=== PATIENT | male | born 1975 | race American Indian/Alaskan Native ===

== ENCOUNTER 2016-10-01 09:29 | Emergency (ER) | payer SELFPAY ==
[~2016-10-01] VITALS: Ht 177.8 cm; Wt 82.1 kg
[2016-10-01 09:31] VITALS: BP 129/86
[2016-10-01] MEDS ORDERED: DIPH,PERTUSS(ACELL),TET VAC/PF 0.5 ML IM-VACC ONE ×2 (09:47→10:00)
[2016-10-01] MEDS ORDERED: LIDOCAINE 1%-EPI 1:100K, 50ML ONE (09:47)
[2016-10-01] MEDS ORDERED: LIDOCAINE 1%-EPI 1:100K, 20ML SQ ONE (10:00)
[2016-10-01] MEDS ORDERED: BACITRACIN ZINC OINT 500U/GM, 0.9 GM ONE (11:00)
== END 2016-10-01 11:36 | disposition home or self-care (01) ==
LOC: ED 10:29
DX: S01.81XA Laceration without foreign body of other part of head, initial encounter (principal); F10.129 Alcohol abuse with intoxication, unspecified; W01.0XXA Fall on same level from slipping, tripping and stumbling without subsequent striking against object, initial encounter; Y93.89 Activity, other specified; Y99.8 Other external cause status; Y92.488 Other paved roadways as the place of occurrence of the external cause
CPT/HCPCS: 12052; 70450; 70486; 90471; 90715

== ENCOUNTER 2016-10-10 17:37 | Emergency (ER) | payer SELFPAY ==
[~2016-10-10] VITALS: Ht 182.9 cm; Wt 85.0 kg
[2016-10-10 17:57] VITALS: BP 110/84
== END 2016-10-10 19:03 | disposition home or self-care (01) ==
LOC: ED 18:57
DX: S01.111D Laceration without foreign body of right eyelid and periocular area, subsequent encounter (principal); X58.XXXA Exposure to other specified factors, initial encounter; Y93.89 Activity, other specified; Y92.89 Other specified places as the place of occurrence of the external cause; Y99.8 Other external cause status
CPT/HCPCS: 99282

== ENCOUNTER 2020-02-22 18:29 | Inpatient (IN) | payer OTHER ==
[~2020-02-22] VITALS: Ht 182.9 cm; Wt 77.6 kg
--- NOTE | 2020-02-22 18:32 | NUR ---
callx1, in [place]
--- NOTE | 2020-02-22 18:56 | NUR ---
This RN did not care for patient.
[2020-02-22] MEDS ORDERED: ACETAMINOPHEN 500 MG TABLET PO ONE (19:00)
[2020-02-22] MEDS ORDERED: RABIES VACCINE /PF 2.5 UNITS IM-VACC ONE (19:20)
[2020-02-22] MEDS ORDERED: ACETAMINOPHEN 500 MG TABLET ONE (19:23)
[2020-02-22 19:25] LABS: ANION GAP 11 mmol/L (5-15); CALCIUM 8.5 mg/dL (8.5-10.1); CHLORIDE 100 mmol/L (98-107); CREATININE 0.75 mg/dL (0.7-1.3)
[2020-02-22] MEDS ORDERED: SODIUM CHLORIDE 0.9% 1,000ML IVBOLUS ONE ×2 (19:30→22:30)
[2020-02-22] MEDS ORDERED: AMPICILLIN/SULBACTAM 3 GM in SODIUM CHLORIDE 0.9% 100 ML IV ONE (19:30)
[2020-02-22] MEDS ORDERED: SODIUM CHLORIDE FLUSH 10ML SYR IVF ONE (19:30)
[2020-02-22] MEDS ORDERED: VANCOMYCIN PER PHARMACY MC ONE (19:30)
[2020-02-22] MEDS ORDERED: VANCOMYCIN 2,000 MG in SODIUM CHLORIDE 0.9% 500 ML IV ONE (19:30)
[2020-02-22 20:23] LABS: MEAN CORPUSCULAR HGB CONC 33.4 g/dL (33.2-36.2); MEAN CORPUSCULAR VOLUME 95.8 fL (81-97); MEAN PLATELET VOLUME 9.6 fL (7.4-10.4); PLATELET COUNT 176 x10^3/uL (130-400); RED BLOOD COUNT 4.74 x10^6/uL (4.38-5.82); RED CELL DISTRIBUTION WIDTH 15.4 % (9.4-14.8)
[2020-02-22 20:40] LABS: MD YES
[2020-02-22 20:42] LABS: BAND#(MANUAL) 1.19 x10^3/uL; BANDS%(MANUAL) 8 % (0-7); LYMPH#(MANUAL) 1.49 x10^3/uL (1-3.4); LYMPHS% (MANUAL) 10 % (22-44); SEG#(MANUAL) 12.22 x10^3/uL (1.8-6.8); SEGS% (MANUAL) 82 % (42-75)
[2020-02-22 20:44] LABS: <PLATELET ESTIMATE> ADEQUATE; <PLT MORPHOLOGY> NORMAL PLT MORPH; ANISOCYTOSIS 1+
--- NOTE | 2020-02-22 21:37 | NUR ---
PT RESTING IN BED, PT A/O X4 AND ON MONITOR. PT DENIED ANY WANTS OR NEEDS AT THIS TIME. RN WILL CONTINUE TO MONITOR PT VITALS
[2020-02-22] MEDS ORDERED: DIPHENHYDRAMINE 50 MG/ML, 1ML IVPush ONE (22:00)
[2020-02-22] MEDS ORDERED: DEXAMETHASONE 4 MG/ML, 1ML IVPush ONE (22:00)
[2020-02-22] MEDS ORDERED: DIPHENHYDRAMINE 50 MG/ML, 1ML ONE (22:23)
[2020-02-22] MEDS ORDERED: DEXAMETHASONE 4 MG/ML, 1ML ONE (22:23)
[2020-02-22] MEDS ORDERED: POTASSIUM CHLORIDE 20 MEQ, MAGNESIUM SULFATE 2 GM, THIAMINE 200 MG, MVI ADULT 10 ML, FO... IV SCH (22:49)
[2020-02-22] MEDS ORDERED: ONDANSETRON 2MG/ML, 2ML IVPush PRN (23:00)
[2020-02-22] MEDS ORDERED: LABETALOL 5MG/ML, 20ML IVPush PRN (23:00)
[2020-02-22] MEDS ORDERED: PROMETHAZINE 25 MG/ML, 1ML IM PRN (23:00)
[2020-02-22] MEDS ORDERED: ACETAMINOPHEN 325 MG TABLET PO PRN (23:00)
--- NOTE | 2020-02-22 23:32 | NUR ---
PT RESTING IN BED, PT A/O X4 AND ON MONITOR. PT DENIED ANY WANTS OR NEEDS AT THIS TIME. RN WILL CONTINUE TO MONITOR PT VITALS
[2020-02-23] MEDS: ENOXAPARIN 40 MG/0.4 ML SQ SCH (00:27)
[2020-02-23 00:37] VITALS: BP 128/79
[2020-02-23] MEDS: DIPHENHYDRAMINE 25 MG CAPSULE PO PRN ×2 (01:22→21:31)
[2020-02-23 01:31] LABS: AMPHETAMINE SCREEN, URINE Positive (Negative); BARBITURATE SCREEN, URINE Negative (Negative); BENZODIAZEPINE SCREEN, URINE Negative (Negative); CANNABINOID SCREEN, URINE Negative (Negative); COCAINE SCREEN, URINE Negative (Negative); METHADONE SCREEN, URINE Negative (Negative); OPIATE SCREEN, URINE Negative (Negative)
[2020-02-23 05:29] LABS: CHLORIDE 106 mmol/L (98-107)
[2020-02-23 05:36] LABS: ANION GAP 6 mmol/L (5-15); CALCIUM 7.9 mg/dL (8.5-10.1)
[2020-02-23 05:37] LABS: MEAN CORPUSCULAR HEMOGLOBIN 31.8 pg (27.5-34.5); MEAN CORPUSCULAR HGB CONC 33.1 g/dL (33.2-36.2); MEAN CORPUSCULAR VOLUME 95.9 fL (81-97); MEAN PLATELET VOLUME 9.3 fL (7.4-10.4); PLATELET COUNT 168 x10^3/uL (130-400); RED BLOOD COUNT 4.34 x10^6/uL (4.38-5.82); RED CELL DISTRIBUTION WIDTH 15.3 % (9.4-14.8)
[2020-02-23 06:23] LABS: MD YES
[2020-02-23 06:24] VITALS: BP 115/71
[2020-02-23 06:30] LABS: BAND#(MANUAL) 2.09 x10^3/uL; BANDS%(MANUAL) 12 % (0-7); LYMPH#(MANUAL) 0.52 x10^3/uL (1-3.4); LYMPHS% (MANUAL) 3 % (22-44); MONOS% (MANUAL) 4 % (2-9); SEG#(MANUAL) 14.09 x10^3/uL (1.8-6.8); SEGS% (MANUAL) 81 % (42-75)
[2020-02-23 06:32] LABS: <PLATELET ESTIMATE> ADEQUATE; <PLT MORPHOLOGY> NORMAL PLT MORPH; ANISOCYTOSIS 1+
[2020-02-23] MEDS ORDERED: VANCOMYCIN PER PHARMACY MC PRN (07:00)
[2020-02-23] MEDS ORDERED: PHARMACOKINETIC MONITORING MC PRN (07:00)
[2020-02-23] MEDS ORDERED: VANCOMYCIN 2,100 MG in SODIUM CHLORIDE 0.9% 500 ML IV ONE (07:30)
[2020-02-23] MEDS ORDERED: LORazepam 0.5MG TABLET PO PRN (08:30)
[2020-02-23] MEDS ORDERED: LORazepam 2 MG/ML, 1ML IV PRN ×3 (08:30)
[2020-02-23] MEDS ORDERED: LORazepam 1MG TABLET PO PRN ×2 (08:30)
[2020-02-23] MEDS: SODIUM CHLORIDE 0.9% 1,000 ML IV SCH ×2 (08:39→21:32)
[2020-02-23] MEDS: PIPERACILLIN/TAZO/PMX 3.375GM 50 ML IV SCH ×3 (08:39→21:31)
[2020-02-23] MEDS: THIAMINE 100MG TABLET PO SCH ×2 (08:40→21:31)
[2020-02-23 12:12] VITALS: BP 132/77
[2020-02-23] MEDS ORDERED: VANCOMYCIN 1,700 MG in SODIUM CHLORIDE 0.9% 250 ML IV SCH (19:30)
[2020-02-23 21:20] VITALS: BP 114/73
[2020-02-23] MEDS: ACETAMINOPHEN 325 MG TABLET PO PRN (21:31)
[2020-02-24] MEDS: VANCOMYCIN 1,700 MG in SODIUM CHLORIDE 0.9% 250 ML IV SCH ×2 (00:53→13:42)
[2020-02-24] MEDS: ENOXAPARIN 40 MG/0.4 ML SQ SCH (00:54)
[2020-02-24 00:59] VITALS: BP 110/73
[2020-02-24] MEDS: PIPERACILLIN/TAZO/PMX 3.375GM 50 ML IV SCH ×4 (03:17→20:41)
[2020-02-24 04:44] LABS: BASOPHILS # (AUTO) 0.12 x10^3/uL (0-0.1); BASOPHILS % (AUTO) 1 % (0-1); EOSINOPHILS # (AUTO) 0.06 x10^3/uL (0-0.4); EOSINOPHILS % (AUTO) 0 % (1-7); LYMPHOCYTES # (AUTO) 1.29 x10^3/uL (1-3.4); LYMPHOCYTES % (AUTO) 9 % (22-44); MD NO; MEAN CORPUSCULAR HEMOGLOBIN 31.8 pg (27.5-34.5); MEAN CORPUSCULAR HGB CONC 32.7 g/dL (33.2-36.2); MEAN CORPUSCULAR VOLUME 97.2 fL (81-97); MONOCYTES % (AUTO) 5 % (2-9); NEUTROPHILS # (AUTO) 12.57 x10^3/uL (1.8-6.8); NEUTROPHILS % (AUTO) 85 % (42-75); PLATELET COUNT 159 x10^3/uL (130-400); RED BLOOD COUNT 4.12 x10^6/uL (4.38-5.82); RED CELL DISTRIBUTION WIDTH 15.2 % (9.4-14.8)
[2020-02-24 04:52] LABS: ANION GAP 7 mmol/L (5-15); CALCIUM 7.9 mg/dL (8.5-10.1); CHLORIDE 106 mmol/L (98-107); CREATININE 0.61 mg/dL (0.7-1.3)
[2020-02-24 06:11] VITALS: BP 105/67
[2020-02-24] MEDS: THIAMINE 100MG TABLET PO SCH ×2 (08:31→20:41)
[2020-02-24 12:37] VITALS: BP 119/61
[2020-02-24] MEDS: SODIUM CHLORIDE 0.9% 1,000 ML IV SCH (13:41)
[2020-02-24 18:28] VITALS: BP 111/71
[2020-02-24] MEDS: ACETAMINOPHEN 325 MG TABLET PO PRN (20:41)
[2020-02-24] MEDS: DIPHENHYDRAMINE 25 MG CAPSULE PO PRN (20:41)
[2020-02-24] MEDS ORDERED: VANCOMYCIN 1,700 MG in SODIUM CHLORIDE 0.9% 250 ML IV SCH (21:00)
[2020-02-25 00:23] VITALS: BP 114/71
[2020-02-25] MEDS: ENOXAPARIN 40 MG/0.4 ML SQ SCH (00:23)
[2020-02-25] MEDS: PIPERACILLIN/TAZO/PMX 3.375GM 50 ML IV SCH (02:45)
[2020-02-25 05:52] LABS: BASOPHILS # (AUTO) 0.03 x10^3/uL (0-0.1); BASOPHILS % (AUTO) 0 % (0-1); EOSINOPHILS # (AUTO) 0.19 x10^3/uL (0-0.4); EOSINOPHILS % (AUTO) 2 % (1-7); LYMPHOCYTES % (AUTO) 20 % (22-44); MD NO; MEAN CORPUSCULAR HEMOGLOBIN 31.8 pg (27.5-34.5); MEAN CORPUSCULAR HGB CONC 32.9 g/dL (33.2-36.2); MEAN CORPUSCULAR VOLUME 96.9 fL (81-97); MEAN PLATELET VOLUME 8.8 fL (7.4-10.4); MONOCYTES # (AUTO) 0.87 x10^3/uL (0.2-0.8); MONOCYTES % (AUTO) 9 % (2-9); NEUTROPHILS # (AUTO) 7.04 x10^3/uL (1.8-6.8); NEUTROPHILS % (AUTO) 70 % (42-75); PLATELET COUNT 199 x10^3/uL (130-400); RED BLOOD COUNT 4.34 x10^6/uL (4.38-5.82); RED CELL DISTRIBUTION WIDTH 15.3 % (9.4-14.8)
[2020-02-25 06:52] VITALS: BP 112/66
[2020-02-25] MEDS: THIAMINE 100MG TABLET PO SCH ×2 (08:14→21:51)
[2020-02-25] MEDS: AMOXICILLIN/CLAV 875-125MG TABLET PO SCH ×2 (08:14→20:52)
[2020-02-25] MEDS: SODIUM CHLORIDE 0.9% 1,000 ML IV SCH (08:14)
[2020-02-25] MEDS: DOXYCYCLINE 100MG TABLET PO SCH ×2 (10:17→21:51)
[2020-02-25] MEDS ORDERED: AMOX1TAB12 PO (11:51)
[2020-02-25] MEDS ORDERED: THIA100T67 PO (11:51)
[2020-02-25] MEDS ORDERED: ACET325T26 PO (11:51)
[2020-02-25] MEDS ORDERED: DOXY100T PO (11:51)
[2020-02-25 12:52] VITALS: BP 117/75
[2020-02-25] MEDS: ACETAMINOPHEN 325 MG TABLET PO PRN (16:50)
[2020-02-25 18:41] VITALS: BP 110/71
[2020-02-25] MEDS: DIPHENHYDRAMINE 25 MG CAPSULE PO PRN (21:51)
[2020-02-26] MEDS: ENOXAPARIN 40 MG/0.4 ML SQ SCH (00:31)
[2020-02-26] MEDS: ACETAMINOPHEN 325 MG TABLET PO PRN ×2 (00:31→07:36)
[2020-02-26 00:34] VITALS: BP 126/84
[2020-02-26] MEDS: SODIUM CHLORIDE 0.9% 1,000 ML IV SCH (04:33)
[2020-02-26 06:45] VITALS: BP 114/68
[2020-02-26] MEDS: AMOXICILLIN/CLAV 875-125MG TABLET PO SCH (07:31)
[2020-02-26] MEDS: DOXYCYCLINE 100MG TABLET PO SCH (07:32)
[2020-02-26] MEDS: THIAMINE 100MG TABLET PO SCH (07:32)
[2020-02-26] MEDS ORDERED: SODIUM CHLORIDE 0.9% 1,000 ML IV SCH (08:30)
[2020-02-26 12:06] VITALS: BP 101/59
== END 2020-02-26 15:38 | disposition home or self-care (01) | DRG 872 ==
LOC: ED 19:07 → INTOOBSV 22:04 → OBSVTOIN 22:04 → EDIP 22:04 → 4WST 23:57
PROVIDERS: ADMIT Family Medicine; ATTEND Internal Medicine
DX: A41.9 Sepsis, unspecified organism (principal); E87.1 Hypo-osmolality and hyponatremia; L03.115 Cellulitis of right lower limb; L03.116 Cellulitis of left lower limb; E87.6 Hypokalemia; F10.129 Alcohol abuse with intoxication, unspecified; F12.10 Cannabis abuse, uncomplicated; F15.10 Other stimulant abuse, uncomplicated; F17.200 Nicotine dependence, unspecified, uncomplicated; G89.11 Acute pain due to trauma; L29.9 Pruritus, unspecified; S81.851A Open bite, right lower leg, initial encounter; S01.511A Laceration without foreign body of lip, initial encounter; Z91.19 Patient's noncompliance with other medical treatment and regimen; W54.0XXA Bitten by dog, initial encounter; Y90.9 Presence of alcohol in blood, level not specified
CPT/HCPCS: 36415; 96361; 96365; 96367; 96375; 99285; J7042; 80048; 80202; 80307; 82330; 83605; 84443; 85025; 87040; 90675; 93005; G0378; J0295; J1100; J1650; J2543; J3370; J3411; J3475; J3480; J1200; J7030; J7040; J7050; Q0163

== ENCOUNTER 2020-03-10 02:37 | Emergency (ER) | payer MEDICAID, OTHER ==
[~2020-03-10] VITALS: Ht 182.9 cm; Wt 83.0 kg
[~2020-03-10 02:37] MED LIST: ACET325T26 PO; AMOX1TAB12 PO; DOXY100T PO; THIA100T67 PO
[2020-03-10 02:42] VITALS: BP 143/97
--- NOTE | 2020-03-10 02:45 | NUR ---
BROUGHT IN [facility] FOR WOUND RECHECK. HAD DOG BITE ON RIGHT LOWER LEG 2 WEEKS AGO. BEEN TAKING ANTIBIOTIC. NO REDNESS / SWELLING NOTED.
--- NOTE | 2020-03-10 02:46 | NUR ---
ERP AT BEDSIDE. NO ORDERS MADE. PATIENT FOR DISCHARGE.
--- NOTE | 2020-03-10 02:52 | NUR ---
PATIENT DISCHARGED WITH INSTRUCTION. VERBALIZED UNDERSTANDING.
== END 2020-03-10 02:55 | disposition home or self-care (01) ==
LOC: ED 02:45
DX: S81.851D Open bite, right lower leg, subsequent encounter (principal); E87.6 Hypokalemia; E87.1 Hypo-osmolality and hyponatremia; F17.200 Nicotine dependence, unspecified, uncomplicated; W54.0XXD Bitten by dog, subsequent encounter
CPT/HCPCS: 99283

== ENCOUNTER 2020-03-10 17:22 | Emergency (ER) | payer SELFPAY ==
[~2020-03-10] VITALS: Ht 182.9 cm; Wt 80.0 kg
[2020-03-10 17:53] VITALS: BP 151/101
--- NOTE | 2020-03-10 19:15 | NUR ---
not in lobby
--- NOTE | 2020-03-10 19:30 | NUR ---
not in lobby
--- NOTE | 2020-03-10 19:42 | NUR ---
not in lobby
== END 2020-03-10 19:44 ==
LOC: ED 19:38
DX: M79.661 Pain in right lower leg (principal)
CPT/HCPCS: 99281